=== PATIENT | female | born 1950 | race Caucasian/White ===

== ENCOUNTER 2016-10-06 01:30 | Emergency (ER) | payer MEDICARE, OTHER ==
[2016-10-06] MEDS ORDERED: EPINEPHrine 1 MG/10 ML SYR IV ONE (01:38)
[2016-10-06] MEDS ORDERED: SOD BICARB 8.4% SYR 50 ML ONE (01:38)
== END 2016-10-06 03:43 | disposition expired ==
LOC: ER 01:30
CPT/HCPCS: 36600; 92950; 96374; 96375